=== PATIENT | male | born 1960 | race Caucasian/White ===

== ENCOUNTER 2018-06-24 08:40 | Outpatient (CLI) | payer OTHER ==
--- NOTE | 2018-06-24 11:40 | MRI ---
MRI RIGHT KNEE WITHOUT CONTRAST: Date: 06/24/18 HISTORY: S83.411A, tear of medial collateral ligament of right knee. Chronic knee pain after falling off a lad main. COMPARISON: None. FINDINGS: Medial Meniscus: There is a complex tear of the medial meniscus which includes a radial tear of the posterior aspect o f the medial meniscal body which then turns posteriorly in an undersurface flap tear of the posterior horn extending into the root attachment. There is thickening of the medial meniscal femoral and meni scal tibial ligaments. There is fluid on both sides of the medial collateral ligament, which otherwis e appears to be intact. Lateral Meniscus: Intact. ACL, PCL, MCL, and LCL: Intact. Extensor Mechanism: Quadriceps tendon, patella, and patellar tendon are intact. Cartilage: Patella femoral compartment: There is some extensive cartilage fraying, which is full thickness of t he patellar apex, with subcortical cyst formation. There is some cartilage delamination on the medial patellar facet which is nondisplaced, measuring 1.0 cm in transverse x 8.0 mm in craniocaudal dimens ion. Medial compartment: Intact. Lateral compartment: Intact. Soft Tissues: There is mild superficial prepatellar bursitis. There is a moderate size joint effusion. Bones: No fracture. No malalignment. No stress edema. IMPRESSION: 1. Complex tear of the medial meniscus involving the body and posterior horn extending to the root a ttachment with both a radial component of the meniscal body which extends posteriorly into an undersu rface flap tear. 2. Mild prepatellar bursitis. 3. 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 POS: TPC
== END 2018-06-24 08:41 | disposition home or self-care (01) ==
LOC: SCSMRI 08:40
PROVIDERS: ATTEND Orthopaedic Surgery
DX: S83.411A Sprain of medial collateral ligament of right knee, initial encounter (principal); S83.241A Other tear of medial meniscus, current injury, right knee, initial encounter; M70.41 Prepatellar bursitis, right knee; M22.41 Chondromalacia patellae, right knee

== ENCOUNTER 2018-08-01 05:53 | Day surgery (SDC) | payer OTHER ==
[2018-07-22 12:22] VITALS: BMI 26.5
[2018-08-01] MEDS ORDERED: Midazolam HCl 2 mg/2 ml Vial ONE (06:23)
[2018-08-01] MEDS ORDERED: Lidocaine 1% (PF) 30 ML VIAL ONE (06:23)
[2018-08-01] MEDS ORDERED: PROPOFOL 20 ML ONE (06:30)
[2018-08-01] MEDS ORDERED: Bupivacaine HCl 0.5%/Epinephrine 1:200,000/PF 30 ml Vial ONE ×2 (06:34→11:14)
[2018-08-01] MEDS ORDERED: Fentanyl 100 MCG/2 ML VIAL ONE (06:56)
[2018-08-01] MEDS ORDERED: CEFAZOLIN 2 GM/50 ML BAG ONE (07:04)
[2018-08-01] MEDS ORDERED: Lidocaine 1% PF 5 ML VIAL ONE (11:58)
[2018-08-01] MEDS ORDERED: PROPOFOL 200 MG/20 ML VIAL ONE (11:58)
[2018-08-01] MEDS ORDERED: Ondansetron PF 4 MG/2 ML Vial ONE (11:58)
[2018-08-01] MEDS ORDERED: Ketorolac Tromethamine 30 MG/ML VIAL ONE (11:58)
[2018-08-01] MEDS ORDERED: Dexamethasone 20 MG/5 ML VIAL ONE (11:58)
--- NOTE | 2018-08-01 16:01 | OP ---
DATE OF PROCEDURE: 08/01/2018 PREOPERATIVE DIAGNOSIS: Medial meniscus tear, right knee. POSTOPERATIVE DIAGNOSIS: Medial meniscus tear, right knee. PROCEDURE PERFORMED: Arthroscopic partial medial meniscectomy. ANESTHESIA: General. BLOOD LOSS: Minimal. SPECIMEN: None. DRAINS: None. COMPLICATIONS: None. DESCRIPTION OF PROCEDURE: The patient was taken to the operating room, where general anesthesia was induced. The right leg was prepped and draped in the usual sterile fashion. medial portal. There was no significant arthritis. There was a complex tear involving most of the posterior horn of the medial meniscus. This was debrided using basket forceps and then smoothed using a . I irrigated the knee to make sure there were no loose fragments in the joint. I checked the lateral compartment, which was completely free of disease. The patellofemoral joint was free of disease. The suprapatellar pouch was free of any loose bodies. Gutters were swept. Knee was then drained. Sterile dressings applied. Job ID: [id number]
== END 2018-08-01 09:48 | disposition home or self-care (01) ==
LOC: SDC 05:53
PROVIDERS: ATTEND Orthopaedic Surgery
PROC: 0SBC4ZZ Excision of Right Knee Joint, Percutaneous Endoscopic Approach (ICD-10-PCS; principal; 2018-08-01)
DX: S83.231A Complex tear of medial meniscus, current injury, right knee, initial encounter (principal); Z87.891 Personal history of nicotine dependence; W11.XXXA Fall on and from ladder, initial encounter
CPT/HCPCS: G8978-GP-CI; G8979-GP-CI; G8980-GP-CI; J0670; J1100; J1885; J2001; J2250; J2405; J2704; J3010